=== PATIENT | female | born 1945 | race Caucasian/White ===

== ENCOUNTER → 2017-05-05 | Outpatient (CLI) | payer OTHER, BC | END | disposition home or self-care (01) | DX: M17.12 Unilateral primary osteoarthritis, left knee (principal); R26.2 Difficulty in walking, not elsewhere classified; M25.562 Pain in left knee; M25.662 Stiffness of left knee, not elsewhere classified; M62.81 Muscle weakness (generalized); Z74.1 Need for assistance with personal care | CPT/HCPCS: 97161 GP; 97165 GO; 97530 GP; 97535 GO; G8978 GP; G8979 GP; G8980 GP; G8987 GO; G8988 GO; G8989 GO ==

== ENCOUNTER 2017-05-24 22:04 | Inpatient (IN) | payer OTHER, BC ==
[~2017-05-24] VITALS: Ht 165.1 cm; Wt 131.0 kg
[~2017-05-24 22:04] MED LIST: AMBIEN10 MG PO; GLUCOPHAGE500 MG PO; PRAVACHOL20 MG PO; PRILOSEC20 MG PO; PRINIVIL20 MG PO; SYNTHROID75 MCG PO; ZIAC 5/6.251 TABLET PO
[2017-05-25 06:01] VITALS: BP 157/74
[2017-05-25 14:47] VITALS: BP 178/87
[2017-05-25 15:52] VITALS: BP 177/83
[2017-05-25 23:54] VITALS: BP 129/60
[2017-05-26 04:49] LABS: HEMATOCRIT 35.6 % (36.0-46.0); MCV 97.8 FL (83-99)
[2017-05-26 05:06] LABS: HEMOGLOBIN 11.4 G/DL (11.9-15.5)
[2017-05-26 05:12] LABS: CHLORIDE 105 mEq/L (99-109); POTASSIUM 4.6 mEq/L (3.7-5.4); SODIUM 142 mEq/L (136-147)
[2017-05-26 05:14] LABS: GLUCOSE 106 mg/dL (70-99)
[2017-05-26 05:18] LABS: CREATININE 0.8 mg/dL (0.6-1.3); GFR ESTIMATE (CALCULATED) > 59 mL/min/; UREA NITROGEN (BUN) 11 mg/dL (9-23)
[2017-05-26 08:41] VITALS: BP 108/59
[2017-05-26 11:54] VITALS: BP 144/67
[2017-05-26 17:00] VITALS: BP 151/71
[2017-05-26 23:28] VITALS: BP 116/56
[2017-05-27 05:22] LABS: HEMATOCRIT 34.8 % (36.0-46.0); HEMOGLOBIN 10.9 G/DL (11.9-15.5); MCV 100.3 FL (83-99)
[2017-05-27 07:54] VITALS: BP 94/50
[2017-05-27 17:07] VITALS: BP 118/62
[2017-05-27 23:34] VITALS: BP 132/60
[2017-05-28 07:53] VITALS: BP 149/79
[2017-05-28] MEDS ORDERED: ENDOCET 5-3251 EACH PO (09:35)
[2017-05-28] MEDS ORDERED: SENNA PLUS TAB1 EACH PO (09:35)
[2017-05-28] MEDS ORDERED: ELIQUIS2.5 MG PO (09:35)
== END 2017-05-28 14:35 | DRG 470 ==
LOC: ENRESERV 22:04 → 3EAST 05-25 05:22 → 2SOUTH 05-25 05:22 → ENRESERV 05-25 13:03 → 2SOUTH 05-25 13:25 → 3EAST 05-25 14:30
PROVIDERS: Orthopaedic Surgery
PROC: 0SRD0J9 Replacement of Left Knee Joint with Synthetic Substitute, Cemented, Open Approach (ICD-10-PCS; principal; 2017-05-25)
DX: M17.12 Unilateral primary osteoarthritis, left knee (principal); Z68.42 Body mass index [BMI] 45.0-49.9, adult; M16.12 Unilateral primary osteoarthritis, left hip; I10 Essential (primary) hypertension; E03.9 Hypothyroidism, unspecified; E11.9 Type 2 diabetes mellitus without complications; E78.00 Pure hypercholesterolemia, unspecified; E66.9 Obesity, unspecified; G47.00 Insomnia, unspecified
CPT/HCPCS: 71045; 80048; 82948; 85014; 85018; C1713; J0690; J1885; J2250; J3010; J7050; J7120